=== PATIENT | female | born 1965 | race Caucasian/White ===

== ENCOUNTER 2019-12-17 11:04 | Outpatient (CLI) | payer OTHER ==
--- NOTE | 2019-12-17 12:03 | MMO ---
Bilateral MAMMO Bilat Diag DDI+ANA. CLINICAL HISTORY: Patient is 54 years old and is seen for diagnostic exam and pain in the sub-areolar region of the right breast. The patient has no family history of breast cancer. The patient has no personal history of cancer. VIEWS: The views performed were: bilateral craniocaudal with tomosynthesis; bilateral mediolateral oblique with tomosynthesis; and bilateral mediolateral with tomosynthesis. FILMS COMPARED: The present examination has been compared to prior imaging studies performed at [facility] on 12/17/2019, and at [facility] on 10/18/2017, 10/14/2018 and 07/15/2019. This study has been interpreted with the assistance of computer-aided detection. MAMMOGRAM FINDINGS: There are scattered fibroglandular densities. There are benign appearing calcifications seen in both breasts. Mammogram findings are stable. Ultrasound reveals asymmetric ductal structure retroareolar right breast. Recommend follow up right breast ultrasound and mammogram in 6 months to confirm stability. IMPRESSION: FOLLOW-UP RIGHT BREAST IN 6 MONTHS IS RECOMMENDED. THE RESULTS OF THIS EXAM WERE SENT TO THE PATIENT. ACR BI-RADS Category 3 - Probably benign finding - short interval follow-up suggested. [facility] will notify the patient of the need for additional imaging services. MAMMOGRAPHY NOTE: 1. A negative mammogram report should not delay a biopsy if a dominant of clinically suspicious mass is present. 2. Approximately 10% to 15% of breast cancers are not detected by mammography. 3. Adenosis and dense breasts may obscure an underlying neoplasm. Reported by: JOZEF LOUIS MD Electonically Signed: [id number]
--- NOTE | 2019-12-17 14:25 | ULT ---
ULTRASOUND RIGHT BREAST: INDICATION: Ultrasound right breast performed to evaluate retroareolar tenderness. No mammographic abnormality i dentified. An asymmetric ductal structure seen in the retroareolar region of the right breast 6 o'clock 1 cm fro m nipple. This has cystic appearance with somewhat elongation suggesting a focal dilated ductal stru cture. The other ductal structures at the areolar appear unremarkable. No suspicious sonographic ab normality. IMPRESSION: Evidence of an asymmetric ductal structure in the retroareolar region at 6 o'clock. Recommend furthe r evaluation with right breast mammogram and ultrasound in 6 months to confirm stability. BIRADS 3: probably benign. Six-month followup recommended.
== END 2019-12-17 11:05 | disposition home or self-care (01) ==
LOC: BICMAMMO 11:04
PROVIDERS: ATTEND Obstetrics & Gynecology
DX: N64.4 Mastodynia (principal); N64.59 Other signs and symptoms in breast; N64.89 Other specified disorders of breast
CPT/HCPCS: 77066; G0279

== ENCOUNTER 2020-08-11 09:37 | Outpatient (CLI) | payer OTHER ==
--- NOTE | 2020-08-11 10:08 | MMO ---
Right Breast MAMMO Unilat Diag DDI RT+ANA. CLINICAL HISTORY: Patient is 55 years old and is seen for diagnostic exam. The patient has no family history of breast cancer. The patient has no personal history of cancer. VIEWS: The views performed were: right craniocaudal with tomosynthesis; right mediolateral oblique with tomosynthesis; and right mediolateral with tomosynthesis. FILMS COMPARED: The present examination has been compared to prior imaging studies performed at [facility] on 12/17/2019 and 08/11/2020, and at [facility] on 07/15/2019. This study has been interpreted with the assistance of computer-aided detection. MAMMOGRAM FINDINGS: There are scattered fibroglandular densities. There are benign appearing calcifications in the right breast. The previously noted prominent duct on US is no longer seen. There are no suspicious masses, suspicious calcifications, or new areas of architectural distortion. IMPRESSION: THERE IS NO MAMMOGRAPHIC EVIDENCE OF MALIGNANCY. A ROUTINE FOLLOW-UP MAMMOGRAM IN 1 YEAR IS RECOMMENDED. THE RESULTS OF THIS EXAM WERE SENT TO THE PATIENT. ACR BI-RADS Category 2 - Benign finding MAMMOGRAPHY NOTE: 1. A negative mammogram report should not delay a biopsy if a dominant of clinically suspicious mass is present. 2. Approximately 10% to 15% of breast cancers are not detected by mammography. 3. Adenosis and dense breasts may obscure an underlying neoplasm. Reported by: ERIC DE LEON MD Electonically Signed: [id number]
--- NOTE | 2020-08-11 11:58 | ULT ---
LIMITED RIGHT BREAST ULTRASOUND: Date: 08/11/2020 HISTORY: Abnormal ultrasound of 12/17/2019, 6 month follow-up. FINDINGS: Correlation made with mammograms of 08/11/2020 and comparison made to ultrasound of 12/17/2019. Sonographic evaluation of the 6 through 9 o'clock positions of the right breast demonstrate no abnorm ality. The previously noted cystic structure suggestive of asymmetric ductal prominence at 6 o'clock on the previous study is no longer seen. IMPRESSION: BI-RADS Category 2 - Benign findings. Return to annual mammographic screening. POS: OFF
== END 2020-08-11 09:38 | disposition home or self-care (01) ==
LOC: BICMAMMO 09:37
PROVIDERS: ATTEND Obstetrics & Gynecology
DX: R92.8 Other abnormal and inconclusive findings on diagnostic imaging of breast (principal)
CPT/HCPCS: G0279